=== PATIENT | female | born 1985 | race Caucasian/White ===

== ENCOUNTER 2016-07-20 18:13 | Emergency (ER) | payer MEDICAID ==
[~2016-07-20] VITALS: Ht 165.1 cm; Wt 113.5 kg
[2016-07-20 19:39] LABS: BASOPHIL % 0.4 % (0-2); PLATELET COUNT 316 x10^3mcL (130-400)
[2016-07-20 19:48] LABS: RED CELL DISTRIBUTION WIDTH 15.2 % (11.5-14.5)
[2016-07-20 19:55] LABS: CALCIUM 9.3 mg/dL (8.5-10.1); CARBON DIOXIDE 21.4 mmol/L (21-32); CHLORIDE SERUM 101 mmol/L (98-107); CREATININE SERUM 0.9 mg/dL (0.6-1.0); GFR1 > 60 mL/min; GLUCOSE SERUM 113 mg/dL (74-106)
[2016-07-20 19:59] LABS: ALBUMIN 3.6 g/dL (3.4-5.0); ALKALINE PHOSPHATASE 95 U/L (46-116); ALT/SGPT 32 U/L (14-59); AST/SGOT 25 U/L (15-37); BILIRUBIN TOTAL 0.89 mg/dL (0.20-1.00); LIPASE 75 IU/L (73-393); TOTAL PROTEIN, SERUM 7.3 g/dL (6.4-8.2)
[2016-07-20 20:00] LABS: AMYLASE 21 U/L (25-115)
[2016-07-20 20:20] LABS: POTASSIUM SERUM 3.5 mmol/L (3.5-5.1); SODIUM SERUM 141 mmol/L (136-145)
[2016-07-20 21:26] VITALS: BP 110/65
== END 2016-07-20 22:13 | disposition home or self-care (01) ==
LOC: ED 18:13
PROVIDERS: Specialist
DX: K80.50 Calculus of bile duct without cholangitis or cholecystitis without obstruction (principal); E66.01 Morbid (severe) obesity due to excess calories
CPT/HCPCS: 83880; J1170; J1885; J2405; J7030